=== PATIENT | female | born 1960 | race Two or more races ===

== ENCOUNTER 2025-03-29 12:30 | Day surgery (SDC) | payer MEDICAID, SELFPAY ==
[2025-03-29] VITALS (10 sets, daily range): BP systolic 118–149; BP diastolic 71–87; PULSE 65–79; RESP 10–22; TEMP 36.7–37.3; O2SAT 92–100; BMI 29.8
[2025-03-29] MEDS: RINGERS LACTATED 1000 ML 1,000 ML 125 ML IV (14:10)
[2025-03-29] MEDS: fentaNYL CIT INJ 50 mCg/ML AMP 2ML (ASD USE ONLY) IVP (14:16)
[2025-03-29] MEDS: MIDAZOLAM INJ 1 MG/ML VIAL 2 ML (ASD USE ONLY) 2 MG IVP (14:20)
== END 2025-03-29 15:50 | disposition home or self-care (01) ==
PROVIDERS: PCP Nurse Practitioner Primary Care; Referring Provider Surgery; Visit Provider Surgery
PROC: 0DBE8ZX Excision of Large Intestine, Via Natural or Artificial Opening Endoscopic, Diagnostic (ICD-10-PCS; CPT 45380; principal; 2025-03-29 12:45)
DX: Z12.11 Encounter for screening for malignant neoplasm of colon (principal); K57.30 Diverticulosis of large intestine without perforation or abscess without bleeding
CPT/HCPCS: 45378; J1200; J2250; J3010; J7120